=== PATIENT | male | born 1985 | race Caucasian/White ===

== ENCOUNTER 2018-03-11 17:10 | Emergency (ER) | payer MEDICAID ==
[~2018-03-11] VITALS: Ht 167.6 cm; Wt 72.7 kg
[~2018-03-11 17:10] MED LIST: CEFA1VIA10 IJ
[2018-03-11 18:03] VITALS: BP 126/61
[2018-03-11] MEDS ORDERED: LIDOcaine 1.5% w/epinephrine 1:200,000 5ml ampul IJ ONE (18:30)
[2018-03-11] MEDS ORDERED: TETanus/Pertussis (Acell)/Diphther VAC/PF (Tdap-Adult) 0.5ml syringe IM ONE (18:30)
[2018-03-11] MEDS ORDERED: LIDOcaine 1% w/epiNEPHrine 1:200,000 30ml vial IJ ONE (18:35)
[2018-03-11] MEDS ORDERED: sulfamethoxazole/trimethoprim DS (800/160mg) tablet PO ONE (19:10)
[2018-03-11] MEDS ORDERED: SULF1TAB49 PO (19:14)
[2018-03-11] MEDS ORDERED: CEPH-572 PO (19:14)
== END 2018-03-11 19:30 | disposition home or self-care (01) ==
LOC: ER 17:11
DX: L02.414 Cutaneous abscess of left upper limb (principal); L02.416 Cutaneous abscess of left lower limb; L02.11 Cutaneous abscess of neck; F15.90 Other stimulant use, unspecified, uncomplicated; F11.90 Opioid use, unspecified, uncomplicated; Z79.2 Long term (current) use of antibiotics; Z79.899 Other long term (current) drug therapy
CPT/HCPCS: 10061; 90471; 90715; 99284; J3490

== ENCOUNTER 2019-12-25 17:37 | Emergency (ER) | payer MEDICAID ==
[2019-12-25 17:53] VITALS: BP 104/65
[2019-12-25] MEDS ORDERED: azithromycin 250mg tablet PO ONE (19:00)
[2019-12-25] MEDS ORDERED: CefTRIAXone 250MG IM Kit w/LIDOcaine IM ONE (19:00)
== END 2019-12-25 19:15 | disposition home or self-care (01) ==
LOC: ER 17:39
DX: Z20.2 Contact with and (suspected) exposure to infections with a predominantly sexual mode of transmission (principal); R30.0 Dysuria; F15.90 Other stimulant use, unspecified, uncomplicated; F11.90 Opioid use, unspecified, uncomplicated; Z79.899 Other long term (current) drug therapy
CPT/HCPCS: 36415; 87491; 87591; 96372; 99283; J0696

== ENCOUNTER 2020-03-10 23:21 | Emergency (ER) | payer MEDICAID ==
[~2020-03-10] VITALS: Ht 167.6 cm; Wt 63.0 kg
[2020-03-10 23:27] VITALS: BP 119/76
[2020-03-10] MEDS ORDERED: metroNIDAZOLE 500mg tablet PO ONE ×2 (23:35→23:40)
[2020-03-10] MEDS ORDERED: azithromycin 250mg tablet PO ONE (23:35)
[2020-03-10] MEDS ORDERED: CefTRIAXone 250MG IM Kit w/LIDOcaine IM ONE (23:35)
== END 2020-03-10 23:55 | disposition home or self-care (01) ==
LOC: ER 23:22
DX: Z11.3 Encounter for screening for infections with a predominantly sexual mode of transmission (principal); F15.10 Other stimulant abuse, uncomplicated
CPT/HCPCS: 96372; 99283; J0696; J3490

== ENCOUNTER 2021-06-23 15:12 | Emergency (ER) | payer MEDICAID ==
[~2021-06-23] VITALS: Ht 167.6 cm; Wt 68.2 kg
[~2021-06-23 15:12] MED LIST changes: +LIDOcaine 1% W/epiNEPHrine 1:100,000 20ml vial ONE
[2021-06-23 15:18] VITALS: BP 143/87
[2021-06-23] MEDS ORDERED: sulfamethoxazole/trimethoprim DS (800/160mg) tablet PO ONE (16:15)
[2021-06-23] MEDS ORDERED: ondansetron 4mg rapidly disintigrating tab PO ONE (16:15)
[2021-06-23] MEDS ORDERED: SULF1TAB49 PO (16:34)
== END 2021-06-23 16:58 | disposition home or self-care (01) ==
LOC: ER 15:12
DX: S60.444A External constriction of right ring finger, initial encounter (principal); L03.113 Cellulitis of right upper limb; F15.90 Other stimulant use, unspecified, uncomplicated; F11.90 Opioid use, unspecified, uncomplicated; Z79.899 Other long term (current) drug therapy; W49.04XA Ring or other jewelry causing external constriction, initial encounter; Y93.89 Activity, other specified; Y92.89 Other specified places as the place of occurrence of the external cause; Y99.8 Other external cause status
CPT/HCPCS: 64450; 99284; J3490; 99283

== ENCOUNTER 2021-07-25 00:04 | Emergency (ER) | payer MEDICAID ==
[~2021-07-25] VITALS: Ht 167.6 cm; Wt 63.6 kg
[~2021-07-25 00:04] MED LIST changes: -LIDOcaine 1% W/epiNEPHrine 1:100,000 20ml vial ONE
[2021-07-25 00:15] VITALS: BP 127/76
[2021-07-25 01:28] LABS: BASOPHILS % (AUTO) 0.2 % (0-1); EOSINOPHILS # (AUTO) 0.2 X10'3 (0-0.9); EOSINOPHILS % (AUTO) 1.9 % (0-6); HEMOGLOBIN 15.1 g/dl (14.0-17.9); LYMPHOCYTES # (AUTO) 3.2 X10'3 (1.1-4.8); LYMPHOCYTES % (AUTO) 37.2 % (21-51); MEAN CORPUSCULAR HEMOGLOBIN 30.6 PG (27.0-31.0); MEAN CORPUSCULAR VOLUME 87.3 FL (78-98); MEAN PLATELET VOLUME 7.9 FL (7.4-10.4); MONOCYTES # (AUTO) 0.6 X10'3 (0-0.9); MONOCYTES % (AUTO) 6.8 % (2-12); NEUTROPHILS # (AUTO) 4.6 X10'3 (1.8-7.7); NEUTROPHILS % (AUTO) 53.9 % (42-75); PLATELET COUNT 187 X10'3 (140-440); RED BLOOD COUNT 4.92 X10'6 (4.70-6.10); WHITE BLOOD COUNT 8.5 X10'3 (4.5-11.0)
[2021-07-25 01:41] LABS: ALANINE AMINOTRANSFERASE 122 U/L (12-78); ALBUMIN 4.2 G/DL (3.4-5.0); ALKALINE PHOSPHATASE 143 IU/L (46-116); ANION GAP 10 (8-16); ASPARTATE AMINO TRANSFERASE 63 U/L (10-37); BILIRUBIN,TOTAL 0.4 MG/DL (0.1-1.0); BLOOD UREA NITROGEN 18 MG/DL (7-18); BUN/CREATININE RATIO 15.7 (5.4-32.0); CALCIUM 9.2 MG/DL (8.5-10.1); CHLORIDE 102 MMOL/L (99-107); CREATININE 1.15 MG/DL (0.60-1.10); GLUCOSE 96 MG/DL (70-104); LIPASE 114 U/L (73-393); POTASSIUM 3.5 MMOL/L (3.5-5.1); SODIUM 140 MMOL/L (135-145); TOTAL CARBON DIOXIDE 28.4 MMOL/L (24-32); TOTAL PROTEIN 8.4 G/DL (6.4-8.2); eGFR 73 ML/MIN
--- NOTE | 2021-07-25 01:47 | NUR ---
registration stated pt "left to talk to his "
== END 2021-07-25 03:03 | disposition left against medical advice (07) ==
LOC: ER 00:06
DX: R10.31 Right lower quadrant pain (principal); Z53.21 Procedure and treatment not carried out due to patient leaving prior to being seen by health care provider
CPT/HCPCS: 36415; 80053; 83690; 85025

== ENCOUNTER 2022-05-25 17:25 | Emergency (ER) | payer MEDICAID ==
[~2022-05-25] VITALS: Ht 167.6 cm; Wt 63.0 kg
[2022-05-25 17:27] VITALS: BP 124/81
[2022-05-25] MEDS ORDERED: sulfamethoxazole/trimethoprim DS (800/160mg) tablet PO ONE (18:45)
[2022-05-25] MEDS ORDERED: HYDROcodone/acetaminophen 5mg/325mg tablet PO ONE (18:45)
[2022-05-25] MEDS ORDERED: SULF1TAB49 PO (18:46)
[2022-05-25] MEDS ORDERED: HYDR-3965 PO (18:46)
== END 2022-05-25 19:18 | disposition home or self-care (01) ==
LOC: ER 17:25
DX: L02.31 Cutaneous abscess of buttock (principal); F15.10 Other stimulant abuse, uncomplicated; Z79.899 Other long term (current) drug therapy
CPT/HCPCS: 99283; A6449

== ENCOUNTER 2022-07-24 13:49 | Emergency (ER) | payer MEDICAID | END 2022-07-24 16:04 | disposition left against medical advice (07) | LOC: ER 13:50 | DX: Z02.89 Encounter for other administrative examinations (principal); Z53.21 Procedure and treatment not carried out due to patient leaving prior to being seen by health care provider ==